=== PATIENT | female | born 1995 | race African-American/Black ===

== ENCOUNTER 2017-03-05 09:43 | Emergency (ER) | payer MEDICAID ==
[~2017-03-05] VITALS: Ht 167.6 cm; Wt 71.1 kg
[~2017-03-05 09:43] MED LIST: INSU100C SQ-INSULIN; INSU100V13 SC
[2017-03-05 11:00] VITALS: BP 161/106
[2017-03-05] MEDS ORDERED: SODIUM CHLORIDE 0.9% 1,000ML IVBOLUS ONE (11:00)
[2017-03-05] MEDS ORDERED: SODIUM CHLORIDE FLUSH 10ML SYR IVF ONE (11:00)
[2017-03-05 11:18] LABS: ASPARTATE AMINO TRANSFERASE 11 U/L (15-37); BLOOD UREA NITROGEN 7 mg/dL (7-18)
== END 2017-03-05 12:55 | disposition home or self-care (01) ==
LOC: ED 12:29
DX: E10.65 Type 1 diabetes mellitus with hyperglycemia (principal)
CPT/HCPCS: 36415; 80053; 83690; 84703; 85025; 96360; 96361; 99285; J7030